=== PATIENT | male | born 1945 | race Caucasian/White ===

== ENCOUNTER 2020-05-19 12:44 | Inpatient (IN) ==
[2020-05-19] MEDS ORDERED: ACETAMINOPHEN 500 MG TABLET PO STA (13:21)
[2020-05-19 13:54] LABS: Basophils % 0.2 % (0.0-0.8); Eosinophils % 0.1 % (0.00-10.9); Hematocrit 35.9 VOL% (42.0-52.0); Immature Granulocytes % 0.5 %; Immature Granulocytes Absolute 0.05 #; Lymphocytes # 0.2 10*3/uL (1.4-4.0); Mean Corpuscular HGB Conc 33.4 GM/DL (32-36); Mean Platelet Volume 9.7 FL (9.6-12.0); Monocytes % 4.9 % (1.7-12.7); Neutrophils % 92.3 % (38.7-73.9); Platelet Count 218 T/CUMM (130-400); Red Blood Count 3.99 MC/CUMM (3.8-5.5); Red Cell Distribution Width 12.9 % (9.3-17.3); White Blood Count 10.7 T/CUMM (4-12)
[2020-05-19 14:09] LABS: Albumin 3.6 G/DL (3.4-5.0); Bilirubin,Total 1.5 MG/DL (0.2-1.0); Calcium 9.2 MG/DL (8.5-10.1); Osmolality,Calculated 281.1 MOS/KG (273-304); Potassium 4.1 MMOL/L (3.5-5.1); Total Protein 7.2 G/DL (5.0-7.5)
[2020-05-19 14:30] LABS: Lymphocytes 3 % (20-55); Platelet Estimate Normal; Segmented Neutrophils 94 % (50-85); Total Cells Counted 100
[2020-05-19 14:31] LABS: Anisocytosis Slight; Microcytosis Slight
[2020-05-19 14:38] LABS: Bacteria,Urine Occasional /HPF (Few); Bilirubin,Urine Negative (Negative); Blood, Urine Negative (Negative); Glucose,Urine (UA) 150 mg/dL (Negative); Ketones,Urine Negative (Negative); Mucus,Urine Occasional /LPF (Occasional); Nitrite,Urine Negative (Negative); Protein,Urine Negative; Sperm,Urine Occasional /HPF (Negative); Squamous Epithelial Cell,Urine Occasional /HPF (0-10); Urine Appearance CLEAR (Clear); Urine Color Yellow (Yellow); Urine Specific Gravity 1.012 (1.001-1.035)
[2020-05-19] MEDS ORDERED: SODIUM CHLORIDE 0.9% 1,000 ML IV STA (14:57)
[2020-05-19] MEDS ORDERED: cefTRIAXone 1,000 MG in SODIUM CHLORIDE 0.9% 100 ML IV STA (16:02)
[2020-05-19] MEDS ORDERED: cefTRIAXone 1,000 MG VIAL ONE (17:17)
[2020-05-19] MEDS ORDERED: DOCUSATE SODIUM 100 MG CAPSULE PO PRN (17:33)
[2020-05-19] MEDS ORDERED: GLUCAGON 1 MG VIAL IM PRN (17:33)
[2020-05-19] MEDS ORDERED: DEXTROSE 50% 25 GM/50 ML VIAL IV PRN (17:33)
[2020-05-19] MEDS ORDERED: ONDANSETRON 4 MG/2 ML VIAL IV PRN (17:33)
[2020-05-19 18:09] LABS: Risk Ratio 10.35; Thyroid Stimulating Hormone 1.22 uIU/ml (0.358-3.74); VLDL CHOLESTEROL 79.8 MG/DL
[2020-05-19 19:03] LABS: Hepatitis B Core IgM Quant < 0.05 Index; Hepatitis B Surface Ag Quant < 0.10 Index; Hepatitis B Surface Ag Result Non-Reactive (NonReactive); Hepatitis C Virus Ab Quant 0.07 Index; Hepatitis C Virus Ab Result Non-Reactive (NonReactive)
[2020-05-19] MEDS: LACTATED RINGERS 1,000 ML IV SCH (19:47)
[2020-05-19] MEDS: metroNIDAZOLE INJ 500 MG in PREMIX 1 EACH IV SCH (19:48)
[2020-05-19] MEDS: ENOXAPARIN 40 MG/0.4 ML SYRINGE SUBCUT SCH (19:49)
[2020-05-20] MEDS: metroNIDAZOLE INJ 500 MG in PREMIX 1 EACH IV SCH ×3 (02:14→17:35)
[2020-05-20] MEDS: LACTATED RINGERS 1,000 ML IV SCH ×2 (03:27→17:36)
[2020-05-20 05:46] LABS: Basophils % 0.4 % (0.0-0.8); Eosinophils # 0.1 10*3/uL (0.0-0.87); Eosinophils % 0.8 % (0.00-10.9); Hemoglobin 10.8 GM/DL (14.0-18.0); Immature Granulocytes % 0.8 %; Immature Granulocytes Absolute 0.06 #; Lymphocytes # 0.7 10*3/uL (1.4-4.0); Lymphocytes % 9.6 % (21.2-54.2); Mean Corpuscular HGB Conc 33.8 GM/DL (32-36); Mean Corpuscular Volume 89.6 FL (87-102); Mean Platelet Volume 10.2 FL (9.6-12.0); Monocytes % 7.4 % (1.7-12.7); Platelet Count 193 T/CUMM (130-400); Red Blood Count 3.57 MC/CUMM (3.8-5.5); Red Cell Distribution Width 12.8 % (9.3-17.3); White Blood Count 7.4 T/CUMM (4-12)
[2020-05-20 06:01] LABS: Calcium 8.5 MG/DL (8.5-10.1); Potassium 3.8 MMOL/L (3.5-5.1)
[2020-05-20] MEDS ORDERED: POTASSIUM CHLORIDE 20 MEQ TABLET PO SCH (09:00)
[2020-05-20] MEDS: NEBIVOLOL 10 MG TABLET PO SCH (09:19)
[2020-05-20] MEDS: TAMSULOSIN 0.4 MG CAPSULE PO SCH (09:20)
[2020-05-20] MEDS: PANTOPRAZOLE 40 MG TABLET PO SCH (09:20)
[2020-05-20] MEDS: lisinopriL 20 MG TABLET PO SCH (09:20)
[2020-05-20] MEDS: DOXAZOSIN 4 MG TABLET PO SCH ×2 (09:20→23:23)
[2020-05-20] MEDS ORDERED: FUROSEMIDE 40 MG TABLET PO SCH (16:00)
[2020-05-20] MEDS: ENOXAPARIN 40 MG/0.4 ML SYRINGE SUBCUT SCH (17:34)
[2020-05-20] MEDS: cefTRIAXone 1,000 MG in SYRINGE 1 EACH IV SCH (17:35)
[2020-05-20] MEDS: ASPIRIN EC 81 MG TABLET PO SCH (23:22)
[2020-05-20] MEDS: FENOFIBRATE 145 MG TABLET PO SCH (23:22)
[2020-05-21] MEDS: metroNIDAZOLE INJ 500 MG in PREMIX 1 EACH IV SCH ×3 (02:48→16:06)
[2020-05-21 03:44] LABS: Basophils # 0.1 10*3/uL (0.0-0.2); Basophils % 1.1 % (0.0-0.8); Eosinophils # 0.2 10*3/uL (0.0-0.87); Eosinophils % 3.3 % (0.00-10.9); Hematocrit 30.8 VOL% (42.0-52.0); Hemoglobin 10.3 GM/DL (14.0-18.0); Immature Granulocytes % 0.9 %; Immature Granulocytes Absolute 0.04 #; Lymphocytes # 0.9 10*3/uL (1.4-4.0); Lymphocytes % 20.6 % (21.2-54.2); Mean Corpuscular HGB Conc 33.4 GM/DL (32-36); Mean Corpuscular Volume 89.8 FL (87-102); Mean Platelet Volume 10.1 FL (9.6-12.0); Monocytes % 10.4 % (1.7-12.7); Neutrophils % 63.7 % (38.7-73.9); Platelet Count 194 T/CUMM (130-400); Red Blood Count 3.43 MC/CUMM (3.8-5.5); White Blood Count 4.5 T/CUMM (4-12)
[2020-05-21 04:13] LABS: Bilirubin,Total 0.7 MG/DL (0.2-1.0); Calcium 8.9 MG/DL (8.5-10.1); Osmolality,Calculated 282.4 MOS/KG (273-304); Potassium 3.7 MMOL/L (3.5-5.1); Total Protein 6.1 G/DL (5.0-7.5)
[2020-05-21] MEDS: LACTATED RINGERS 1,000 ML IV SCH (05:34)
[2020-05-21] MEDS: hydrALAZINE 20 MG/1 ML VIAL IV PRN (08:30)
[2020-05-21] MEDS: PANTOPRAZOLE 40 MG TABLET PO SCH (11:58)
[2020-05-21] MEDS: TAMSULOSIN 0.4 MG CAPSULE PO SCH (11:58)
[2020-05-21] MEDS: DOXAZOSIN 4 MG TABLET PO SCH ×2 (11:58→21:29)
[2020-05-21] MEDS: NEBIVOLOL 10 MG TABLET PO SCH (11:58)
[2020-05-21] MEDS: lisinopriL 20 MG TABLET PO SCH (11:58)
[2020-05-21] MEDS: POLYETHYLENE GLYCOL POWDER 17 GM PACK PO SCH (16:06)
[2020-05-21] MEDS ORDERED: DOCUSATE SODIUM 100 MG CAPSULE PO PRN (17:00)
[2020-05-21] MEDS: cefTRIAXone 1,000 MG in SYRINGE 1 EACH IV SCH (21:14)
[2020-05-21] MEDS: ASPIRIN EC 81 MG TABLET PO SCH (21:28)
[2020-05-21] MEDS: FENOFIBRATE 145 MG TABLET PO SCH (21:29)
[2020-05-22] MEDS: metroNIDAZOLE INJ 500 MG in PREMIX 1 EACH IV SCH ×3 (01:23→16:52)
[2020-05-22 05:54] LABS: Basophils # 0.1 10*3/uL (0.0-0.2); Basophils % 1.1 % (0.0-0.8); Eosinophils # 0.1 10*3/uL (0.0-0.87); Eosinophils % 2.4 % (0.00-10.9); Hemoglobin 11.2 GM/DL (14.0-18.0); Immature Granulocytes % 1.3 %; Immature Granulocytes Absolute 0.06 #; Lymphocytes # 0.9 10*3/uL (1.4-4.0); Lymphocytes % 20.1 % (21.2-54.2); Mean Corpuscular HGB Conc 33.9 GM/DL (32-36); Mean Corpuscular Volume 90.2 FL (87-102); Mean Platelet Volume 10.4 FL (9.6-12.0); Monocytes % 11.7 % (1.7-12.7); Neutrophils % 63.4 % (38.7-73.9); Platelet Count 209 T/CUMM (130-400); Red Blood Count 3.66 MC/CUMM (3.8-5.5); White Blood Count 4.6 T/CUMM (4-12)
[2020-05-22 06:07] LABS: Bilirubin,Total 0.4 MG/DL (0.2-1.0); Calcium 8.9 MG/DL (8.5-10.1); Osmolality,Calculated 282.4 MOS/KG (273-304); Potassium 4.1 MMOL/L (3.5-5.1); Total Protein 6.1 G/DL (6.4-8.2)
[2020-05-22] MEDS ORDERED: INDOMETHACIN SUPP 50 MG SUPP RECTAL ONE (08:00)
[2020-05-22] MEDS: LACTATED RINGERS 1,000 ML IV SCH (12:22)
[2020-05-22] MEDS ORDERED: LIDOCAINE 2% 5 ML VIAL ONE (12:39)
[2020-05-22] MEDS ORDERED: propofoL 200 MG/20 ML VIAL IV ONE (12:39)
[2020-05-22] MEDS ORDERED: SUCCINYLCHOLINE 200 MG/10 ML VIAL ONE (12:39)
[2020-05-22] MEDS ORDERED: fentaNYL 100 MCG/2 ML VIAL ONE (12:39)
[2020-05-22] MEDS ORDERED: ceFAZolin 1,000 MG in SYRINGE 1 EACH IV ONE (12:43)
[2020-05-22] MEDS ORDERED: ePHEDrine 50 MG/ML VIAL ONE ×2 (13:07→13:20)
[2020-05-22] MEDS ORDERED: ROCURONIUM 50 MG/5 ML VIAL IV ONE (13:07)
[2020-05-22] MEDS ORDERED: SEVOFLURANE 1 UNIT/15 MINUTE INH ONE (13:52)
[2020-05-22] MEDS ORDERED: GLYCOPYRROLATE 0.4 MG/2 ML VIAL ONE ×2 (13:53)
[2020-05-22] MEDS ORDERED: NEOSTIGMINE 10 MG/10 ML VIAL ONE (13:53)
[2020-05-22] MEDS ORDERED: ONDANSETRON 4 MG/2 ML VIAL ONE (13:53)
[2020-05-22] MEDS: DOXAZOSIN 4 MG TABLET PO SCH ×2 (15:03→21:16)
[2020-05-22] MEDS: NEBIVOLOL 10 MG TABLET PO SCH (15:14)
[2020-05-22] MEDS: TAMSULOSIN 0.4 MG CAPSULE PO SCH (15:15)
[2020-05-22] MEDS: lisinopriL 20 MG TABLET PO SCH (15:15)
[2020-05-22] MEDS: PANTOPRAZOLE 40 MG TABLET PO SCH (15:15)
[2020-05-22] MEDS: POLYETHYLENE GLYCOL POWDER 17 GM PACK PO SCH (16:11)
[2020-05-22] MEDS: SIMETHICONE CHEW 125 MG TABLET PO PRN (18:00)
[2020-05-22] MEDS: cefTRIAXone 1,000 MG in SYRINGE 1 EACH IV SCH (20:45)
[2020-05-22] MEDS: FENOFIBRATE 145 MG TABLET PO SCH (21:16)
[2020-05-22] MEDS: ASPIRIN EC 81 MG TABLET PO SCH (21:16)
[2020-05-23] MEDS: metroNIDAZOLE INJ 500 MG in PREMIX 1 EACH IV SCH ×3 (01:00→16:52)
[2020-05-23 06:08] LABS: Basophils % 0.6 % (0.0-0.8); Eosinophils # 0.1 10*3/uL (0.0-0.87); Eosinophils % 1.4 % (0.00-10.9); Hematocrit 31.2 VOL% (42.0-52.0); Hemoglobin 10.9 GM/DL (14.0-18.0); Immature Granulocytes % 1.4 %; Immature Granulocytes Absolute 0.07 #; Lymphocytes # 0.5 10*3/uL (1.4-4.0); Lymphocytes % 10.4 % (21.2-54.2); Mean Corpuscular HGB Conc 34.9 GM/DL (32-36); Mean Corpuscular Volume 87.4 FL (87-102); Mean Platelet Volume 10.3 FL (9.6-12.0); Monocytes % 11.5 % (1.7-12.7); Neutrophils % 74.7 % (38.7-73.9); Platelet Count 189 T/CUMM (130-400); Red Blood Count 3.57 MC/CUMM (3.8-5.5); Red Cell Distribution Width 12.9 % (9.3-17.3); White Blood Count 5.1 T/CUMM (4-12)
[2020-05-23 06:46] LABS: Albumin 2.9 G/DL (3.4-5.0); Bilirubin,Total 3.2 MG/DL (0.2-1.0); Calcium 8.8 MG/DL (8.5-10.1); Osmolality,Calculated 276.8 MOS/KG (273-304); Potassium 4.1 MMOL/L (3.5-5.1)
[2020-05-23] MEDS: LACTATED RINGERS 1,000 ML IV SCH (08:26)
[2020-05-23] MEDS: NEBIVOLOL 10 MG TABLET PO SCH (10:30)
[2020-05-23] MEDS: DOXAZOSIN 4 MG TABLET PO SCH ×2 (10:30→20:36)
[2020-05-23] MEDS: lisinopriL 20 MG TABLET PO SCH (10:31)
[2020-05-23] MEDS: TAMSULOSIN 0.4 MG CAPSULE PO SCH (10:31)
[2020-05-23] MEDS: PANTOPRAZOLE 40 MG TABLET PO SCH (10:31)
[2020-05-23] MEDS: POLYETHYLENE GLYCOL POWDER 17 GM PACK PO SCH (10:31)
[2020-05-23] MEDS ORDERED: LIDOCAINE 2% 5 ML VIAL ONE (10:48)
[2020-05-23] MEDS ORDERED: propofoL 200 MG/20 ML VIAL IV ONE (10:48)
[2020-05-23] MEDS ORDERED: ONDANSETRON 4 MG/2 ML VIAL ONE (10:48)
[2020-05-23] MEDS ORDERED: SEVOFLURANE 1 UNIT/15 MINUTE INH ONE ×4 (10:48→12:27)
[2020-05-23] MEDS ORDERED: ROCURONIUM 50 MG/5 ML VIAL IV ONE (10:48)
[2020-05-23] MEDS ORDERED: fentaNYL 100 MCG/2 ML VIAL ONE (10:49)
[2020-05-23] MEDS ORDERED: LACTATED RINGERS 1,000 ML IV SCH (11:00)
[2020-05-23] MEDS ORDERED: ePHEDrine 50 MG/ML VIAL ONE (11:20)
[2020-05-23] MEDS ORDERED: ACETAMINOPHEN 1,000 MG/100 ML VIAL IV ONE (11:26)
[2020-05-23] MEDS ORDERED: TISSUE ADHESIVE 1 EACH APPLICATOR TOP ONE (12:17)
[2020-05-23] MEDS ORDERED: GLYCOPYRROLATE 0.4 MG/2 ML VIAL ONE (12:17)
[2020-05-23] MEDS ORDERED: NEOSTIGMINE 10 MG/10 ML VIAL ONE (12:17)
[2020-05-23] MEDS ORDERED: LACTATED RINGERS 1,000 ML IV ONE (12:24)
[2020-05-23] MEDS ORDERED: HYDROmorphone 2 MG/1 ML VIAL ONE (12:59)
[2020-05-23] MEDS: HYDROmorphone 2 MG/1 ML VIAL IV PRN ×2 (13:00→13:13)
[2020-05-23] MEDS ORDERED: ONDANSETRON 4 MG/2 ML VIAL IV PRN (13:03)
[2020-05-23] MEDS ORDERED: MORPHINE 4 MG/1 ML VIAL IV PRN (20:21)
[2020-05-23] MEDS: ASPIRIN EC 81 MG TABLET PO SCH (20:36)
[2020-05-23] MEDS: hydrALAZINE 20 MG/1 ML VIAL IV PRN (20:36)
[2020-05-23] MEDS: FENOFIBRATE 145 MG TABLET PO SCH (20:36)
[2020-05-23] MEDS: cefTRIAXone 1,000 MG in SYRINGE 1 EACH IV SCH (22:30)
[2020-05-23] MEDS: SIMETHICONE CHEW 125 MG TABLET PO PRN (22:31)
[2020-05-24] MEDS: metroNIDAZOLE INJ 500 MG in PREMIX 1 EACH IV SCH ×3 (00:56→09:45)
[2020-05-24 06:02] LABS: Basophils % 0.7 % (0.0-0.8); Eosinophils # 0.1 10*3/uL (0.0-0.87); Eosinophils % 1.4 % (0.00-10.9); Hematocrit 32.5 VOL% (42.0-52.0); Hemoglobin 10.9 GM/DL (14.0-18.0); Immature Granulocytes % 1.9 %; Immature Granulocytes Absolute 0.11 #; Lymphocytes # 0.6 10*3/uL (1.4-4.0); Mean Corpuscular HGB Conc 33.5 GM/DL (32-36); Mean Corpuscular Volume 89.3 FL (87-102); Mean Platelet Volume 10.3 FL (9.6-12.0); Monocytes % 8.8 % (1.7-12.7); Neutrophils % 77.2 % (38.7-73.9); Platelet Count 188 T/CUMM (130-400); Red Blood Count 3.64 MC/CUMM (3.8-5.5); Red Cell Distribution Width 13.2 % (9.3-17.3); White Blood Count 5.8 T/CUMM (4-12)
[2020-05-24 06:27] LABS: Albumin 3.1 G/DL (3.4-5.0); Bilirubin,Total 2.8 MG/DL (0.2-1.0); Calcium 8.7 MG/DL (8.5-10.1); Potassium 3.7 MMOL/L (3.5-5.1); Total Protein 6.4 G/DL (6.4-8.2)
[2020-05-24 08:05] VITALS: BP 156/72
[2020-05-24] MEDS: POLYETHYLENE GLYCOL POWDER 17 GM PACK PO SCH (09:00)
[2020-05-24] MEDS: NEBIVOLOL 10 MG TABLET PO SCH (09:01)
[2020-05-24] MEDS: lisinopriL 20 MG TABLET PO SCH (09:01)
[2020-05-24] MEDS: PANTOPRAZOLE 40 MG TABLET PO SCH (09:01)
[2020-05-24] MEDS: TAMSULOSIN 0.4 MG CAPSULE PO SCH (09:01)
[2020-05-24] MEDS: DOXAZOSIN 4 MG TABLET PO SCH (09:01)
[2020-05-24] MEDS: LACTATED RINGERS 1,000 ML IV SCH (09:22)
[2020-05-24] MEDS ORDERED: metroNIDAZOLE 500 MG TABLET PO SCH (11:00)
== END 2020-05-24 12:40 | disposition home or self-care (01) | DRG 419 ==
LOC: N.ED 12:44 → N.5E 17:31 → SUATTDRO 17:31 → N.5E 19:17
PROVIDERS: ADMIT Internal Medicine; ATTEND Internal Medicine
PROC: ERCPWSP (ICD-10-PCS; 2020-05-22 12:20)
PROC: LAPCHOL (2020-05-23 10:56)